=== PATIENT | female | born 1985 | race Two or more races ===

== ENCOUNTER → 2019-06-04 | Emergency (ER) | payer OTHER ==
[~2019-06-04] VITALS: Ht 167.6 cm; Wt 59.9 kg
[~2019-06-04] MED LIST: AIRBORNE EFFER1 EACH PO; FLONASE ALLERG9.9 ML NASAL; LOSARTAN POTASS50 MG; MUCINEX DM ER1 EAC1 PO; OBSTETRIX DHA1 EACH; PERCOCET 5-3251 EACH PO; SURFAK240 M1 PO; TOPROL XL25 M1; VENTOLIN HFA18 GM IH
== END | disposition home or self-care (01) ==
LOC: ER 08:34
DX: J06.9 Acute upper respiratory infection, unspecified (principal)

== ENCOUNTER 2019-07-25 08:55 | Outpatient (CLI) | payer OTHER | END 2019-07-25 09:08 | disposition home or self-care (01) | LOC: SONOGRAMA 08:55 | PROVIDERS: ATTEND Pathology Anatomic Pathology | DX: R59.0 Localized enlarged lymph nodes (principal) ==

== ENCOUNTER 2019-09-18 03:45 | Emergency (ER) | payer OTHER ==
[~2019-09-18] VITALS: Ht 167.6 cm; Wt 61.2 kg
[2019-09-18] MEDS ORDERED: CLARITIN10 MG PO (05:28)
[2019-09-18] MEDS ORDERED: TUSNEL LIQUID178 ML PO (05:28)
== END 2019-09-18 05:40 | disposition home or self-care (01) ==
LOC: ER 03:45
DX: U07.1 COVID-19 (principal); R07.89 Other chest pain

== ENCOUNTER 2019-09-21 16:19 | Emergency (ER) | payer OTHER ==
[~2019-09-21] VITALS: Ht 167.6 cm; Wt 61.2 kg
[~2019-09-21 16:19] MED LIST changes: +CLARITIN10 MG PO; +TUSNEL LIQUID178 ML PO
== END 2019-09-21 20:19 | disposition home or self-care (01) ==
LOC: ER 16:19
DX: R06.02 Shortness of breath (principal); U07.1 COVID-19

== ENCOUNTER 2019-09-27 10:12 | Emergency (ER) | payer OTHER ==
[~2019-09-27] VITALS: Ht 167.6 cm; Wt 61.2 kg
== END 2019-09-27 16:56 | disposition home or self-care (01) ==
LOC: ER 10:12
DX: R55 Syncope and collapse (principal); U07.1 COVID-19; E86.0 Dehydration

== ENCOUNTER → 2020-08-02 | Emergency (ER) | payer OTHER ==
[~2020-08-02] VITALS: Ht 167.6 cm; Wt 63.5 kg
[~2020-08-02] MED LIST changes: +KETO10TA2 PO
== END | disposition home or self-care (01) ==
LOC: ER 15:51
DX: I16.0 Hypertensive urgency (principal); I10 Essential (primary) hypertension; M94.0 Chondrocostal junction syndrome [Tietze]

== ENCOUNTER → 2021-01-31 | Emergency (ER) | payer OTHER ==
[~2021-01-31] VITALS: Ht 170.2 cm; Wt 60.8 kg
[~2021-01-31] MED LIST changes: +NORVASC5 MG PO
== END | disposition left against medical advice (07) ==
LOC: ER 22:46
DX: Z53.21 Procedure and treatment not carried out due to patient leaving prior to being seen by health care provider (principal)